=== PATIENT | female | born 1995 | race Caucasian/White ===

== ENCOUNTER 2017-05-08 20:33 | Observation (INO) | payer MEDICAID, OTHER ==
[2017-05-08 20:35] VITALS: BMI 24.2
[2017-05-08] MEDS ORDERED: Albuterol-Ipratrop 3 mg / 0.5 (3 ml) UD IH SCH (20:45)
--- NOTE | 2017-05-08 20:54 | ED PDOC ---
Arrival/HPI <Miguel Lux - Last Filed: 05/08/17 21:44> - History of Present Illness Time/Duration: < week Symptom Onset: Gradual Symptom Course: Worsening Context: Walking <CésarShani brewster - Last Filed: 05/09/17 01:29> - General Chief Complaint: Shortness Of Breath Time Seen by Provider: 05/08/17 20:33 - History of Present Illness Narrative History of Present Illness (Text): 05/08/17 20:48 21 year old female with past medical history of asthma presents for SOB worsening since yesterday. For past 5 days, patient has cough, nasal congestion and SOB. Since yesterday patient has been wheezing and having worsening SOB. Patient had used nebulizer machine and Ventolin at home for SOB with minimal relief. Patient also complains of chills. Denies having any abd pain, N/V/D/ C. Patient states that her daughter had URI symptoms last week (Shani Caldera) Past Medical History - Provider Review Nursing Documentation Reviewed: Yes - Infectious Disease Hx of Infectious Diseases: None - Tetanus Immunization Tetanus Immunization: Unknown - Cardiac Hx Cardiac Disorders: No - Pulmonary Hx Respiratory Disorders: Yes Hx Asthma: Yes - Neurological Hx Neurological Disorder: No - HEENT Hx HEENT Disorder: No - Renal Hx Renal Disorder: No - Endocrine/Metabolic Hx Endocrine Disorders: No - Hematological/Oncological Hx Blood Disorders: No - Integumentary Hx Dermatological Disorder: No - Musculoskeletal/Rheumatological Hx Musculoskeletal Disorders: No - Gastrointestinal Hx Gastrointestinal Disorders: No - Genitourinary/Gynecological Hx Genitourinary Disorders: No - Psychiatric Hx Psychophysiologic Disorder: No Hx Substance Use: No - Anesthesia Hx Anesthesia: No Hx Anesthesia Reactions: No Hx Malignant Hyperthermia: No - Suicidal Assessment Feels Threatened In Home Enviroment: No <Shani Caldera - Last Filed: 05/09/17 01:29> Family/Social History - Physician Review Nursing Documentation Reviewed: Yes Family/Social History: Unknown Family HX Smoking Status: Never Smoked Hx Alcohol Use: No Hx Substance Use: No Hx Substance Use Treatment: No <Shani Caldera - Last Filed: 05/09/17 01:29> Allergies/Home Meds <Miguel Lux - Last Filed: 05/08/17 21:44> <Shani Caldera - Last Filed: 05/09/17 01:29> Allergies/Adverse Reactions: Allergies peanut Allergy (Verified 09/17/16 22:48) ANAPHYLAXIS Review of Systems - Review of Systems Constitutional: Normal. absent: Fatigue, Fevers Eyes: Normal ENT: Rhinorrhea, Sinus Congestion. absent: Normal, Sore Throat Respiratory: SOB, Cough, Wheezing Cardiovascular: absent: Chest Pain, Edema, Calf Pain Gastrointestinal: Normal. absent: Abdominal Pain, Constipation, Diarrhea, Nausea, Vomiting Genitourinary Female: Normal. absent: Dysuria, Frequency Musculoskeletal: Normal. absent: Arthralgias, Back Pain Skin: Normal. absent: Rash, Pruritis, Skin Lesions Neurological: Normal. absent: Headache, Dizziness Endocrine: Normal. absent: Diaphoresis, Polyuria Hemo/Lymphatic: Normal. absent: Adenopathy, Easy Bleeding Psychiatric: Normal. absent: Anxiety, Depression <Shani Caldera - Last Filed: 05/09/17 01:29> Physical Exam Temperature: Afebrile Blood Pressure: Normal Pulse: Tachycardic Respiratory Rate: Normal Appearance: Positive for: Uncomfortable Pain Distress: None Mental Status: Positive for: Alert and Oriented X 3 - Systems Exam Head: Present: Atraumatic, Normocephalic Mouth: Present: Moist Mucous Membranes Respiratory/Chest: Present: Wheezes. No: Respiratory Distress, Accessory Muscle Use, Rales, Retracting, Rhonchi Cardiovascular: Present: Normal S1, S2, Tachycardic. No: Murmurs Abdomen: Present: Normal Bowel Sounds. No: Tenderness, Distention, Peritoneal Signs, Rebound, Guarding Lower Extremity: Present: Normal Inspection, NORMAL PULSES. No: Edema, CALF TENDERNESS Neurological: Present: GCS=15, CN II-XII Intact, Speech Normal Skin: Present: Warm, Dry, Normal Color. No: Rashes Psychiatric: Present: Alert, Oriented x 3, Normal Insight, Normal Concentration <Shani Caldera - Last Filed: 05/09/17 01:29> Vital Signs Temp Pulse Resp BP Pulse Ox 05/09/17 00:40 98.4 F 112 H 18 114/67 97 05/08/17 20:40 16 05/08/17 20:38 98.3 F 127 H 20 112/66 98 Medical Decision Making - Lab Interpretations I have reviewed the lab results: Yes <Miguel Lux - Last Filed: 05/08/17 21:44> - Lab Interpretations I have reviewed the lab results: Yes - EKG Interpretation Interpreted by ED Physician: Yes Type: 12 lead EKG <Shani Caldera - Last Filed: 05/09/17 01:29> ED Course and Treatment: Impression: In agreement with resident note, which includes further HPI details. Patient was seen and evaluated with resident, came up with plan and treatment together. 21 year old female with past medical history of asthma presents for SOB worsening since yesterday. Patient also complains of associated wheezing, cough , and nasal congestion. Plan: --Labs; D-dimer -- Chest X-ray --US Lower Extremities --Duoneb --SOLU-Medrol --Xopenex -- Reassess and disposition (Miguel Lux) 05/08/17 20:57 21 year old female presents with SOB likely due to asthma exacerbation Will check CBC, BMP, D dimer Will get CXR Patient will be given Xopenex and Solumedrol 125 mg IVP stat 05/08/17 23:[address] Lyons who accepts patient for observation to tele under hospitalists service (Shani Caldera) - Lab Interpretations Lab Results: 05/08/17 21:10 05/08/17 21:10 Lab Results 05/08/17 21:10: Beta HCG, Quant 1859.10 H 05/08/17 21:10: D-Dimer, Quantitative 0.61 H 05/08/17 21:10: Sodium 136, Potassium 3.6, Chloride 101, Carbon Dioxide 27, Anion Gap 12, BUN 9, Creatinine 0.5, Est GFR ( Amer) > 60, Est GFR (Non- Af Amer) > 60, Random Glucose 94, Calcium 8.8 05/08/17 21:10: WBC 3.8 L D, RBC 4.41, Hgb 12.5, Hct 36.4, MCV 82.5, MCH 28.3, MCHC 34.3, RDW 13.4, Plt Count 175, MPV 9.4 - RAD Interpretation Radiology Orders: 05/08/17 21:06 DUPLEX LOWER EXTRM VEIN BILAT [US] Stat - EKG Interpretation EKG Interpretation (Text): 05/09/17 00:28 sinus tach HR of 114. Normal axis and normal interval (Shani Caldera) - Medication Orders Current Medication Orders: Albuterol/Ipratropium (Duoneb 3 Mg/0.5 Mg (3 Ml) Ud) 3 ml IH Q2H PRN PRN Reason: Shortness of Breath Albuterol/Ipratropium (Duoneb 3 Mg/0.5 Mg (3 Ml) Ud) 3 ml IH [id number] ABRIL Methylprednisolone (Solu-Medrol) 40 mg IVP Q12 ABRIL Discontinued Medications Albuterol/Ipratropium (Duoneb 3 Mg/0.5 Mg (3 Ml) Ud) 3 ml IH Q15M ABRIL Stop: 05/09/17 00:01 Last Admin: 05/08/17 23:56 Dose: 3 ml Levalbuterol HCl (Xopenex) 1.25 mg IH STAT STA Stop: 05/08/17 20:57 Last Admin: 05/08/17 21:14 Dose: 1.25 mg Methylprednisolone (Solu-Medrol) 125 mg IVP STAT STA Stop: 05/08/17 20:46 Last Admin: 05/08/17 21:14 Dose: 125 mg Disposition/Present on Arrival <Miguel Lux - Last Filed: 05/08/17 21:44> - Present on Arrival Any Indicators Present on Arrival: No History of DVT/PE: No History of Uncontrolled Diabetes: No Urinary Catheter: No History of Decub. Ulcer: No History Surgical Site Infection Following: None - Disposition Have Diagnosis and Disposition been Completed?: Yes Disposition Time: 23:54 Patient Plan: Observation <Shani Caldera - Last Filed: 05/09/17 01:29> - Disposition Diagnosis: Asthma exacerbation Disposition: HOSPITALIZED Patient Problems: Current Active Problems Problem Status Onset Asthma exacerbation Acute Condition: STABLE
[2017-05-08] MEDS ORDERED: Levalbuterol 1.25 MG/3 ML Inhal Soln UD IH STA (20:56)
[2017-05-08 21:33] LABS: HEMOGLOBIN 12.5 gm/dL (12.0-16.0); MEAN CELL VOLUME 82.5 fL (80.0-105.0); MEAN CORPUSCULAR HEMOGLOBIN 28.3 pg (25.0-35.0); MEAN CORPUSCULAR HGB CONC 34.3 g/dl (31.0-37.0); MEAN PLATELET VOLUME 9.4 fl (7.0-11.0); RBC 4.41 10^6/uL (3.5-6.1); RED CELL DISTRIBUTION WIDTH 13.4 % (11.5-14.5); WHITE BLOOD COUNT 3.8 10^3/ul (4.5-11.0)
[2017-05-08 21:34] LABS: BLOOD UREA NITROGEN 9 mg/dL (7-21); CALCIUM 8.8 mg/dL (8.4-10.5); GFR AFRICAN-AMERICAN > 60; GFR NON-AFRICAN AMERICAN > 60
[2017-05-08] MEDS: Albuterol-Ipratrop 3 mg / 0.5 (3 ml) UD IH SCH (23:56)
[2017-05-09] MEDS ORDERED: Albuterol-Ipratrop 3 mg / 0.5 (3 ml) UD IH PRN (01:08)
[2017-05-09] MEDS: Albuterol-Ipratrop 3 mg / 0.5 (3 ml) UD IH SCH ×5 (01:57→16:03)
--- NOTE | 2017-05-09 03:15 | CP.PCM.HP ---
<JOSEMANUEL EISENBERG - Last Filed: 05/09/17 03:23> History of Present Illness - History of Present Illness History of Present Illness: CC: Asthma Exacerbation HPI: Ms. Perez is a 21 year old female with a past medical history significant for asthma who presented to the ED for an asthma exacerbation. Patient reports that since Tuesday, she has had symptoms of low grade fever, productive cough of clear phlegm, and nasal congestion and that her 1 year old daughter had similar complaints 10 days ago. Since she has had shortness of breath and wheezing. She reports that she has had to take her albuterol and duoneb treatments multiple times a day since with minimal relief. She reports that she was on daily advair until a few months ago but her insurance changed and it is no longer covered. Patient reports that her symptoms are well controlled and she only uses her albuterol inhaler every couple of weeks. She reports no night time symptoms of her asthma. She denies any new pets, new lotions, new laundry detergent or any other possible asthma triggers. Patient was incidentally found to have a positive test in the ED and urged medical staff for discretion of this in front of her visitors, as this information is new to her. Currently, patient reports that her SOB and wheezing have improved only somewhat but she is "breathing easier" than she was when she was admitted. She denies headache, dizziness, changes in vision, chest pain, palpitations, pleurisy, hemoptysis, abdominal pain, N/V, diarrhea, numbness/tingling/weakness of any extremity, edema, rashes, neck pain or back pain. PMH: Asthma PSH: None Family History: Father has asthma, Mother and her side of the family "all" have DM2 Social History: Denies tobacco, alcohol or any illicit drug use Allergies: Peanut Home Meds: Ventolin and Nebulized Albuterol PRN Present on Admission - Present on Admission Any Indicators Present on Admission: No Review of Systems - Review of Systems Review of Systems: Please refer to HPI Past Patient History - Infectious Disease Hx of Infectious Diseases: None - Tetanus Immunizations Tetanus Immunization: Unknown - Past Social History Smoking Status: Never Smoked - CARDIAC Hx Cardiac Disorders: No - PULMONARY Hx Respiratory Disorders: Yes Hx Asthma: Yes - NEUROLOGICAL Hx Neurological Disorder: No - HEENT Hx HEENT Problems: No - RENAL Hx Chronic Kidney Disease: No - ENDOCRINE/METABOLIC Hx Endocrine Disorders: No - HEMATOLOGICAL/ONCOLOGICAL Hx Blood Disorders: No - INTEGUMENTARY Hx Dermatological Problems: No - MUSCULOSKELETAL/RHEUMATOLOGICAL Hx Musculoskeletal Disorders: No - GASTROINTESTINAL Hx Gastrointestinal Disorders: No - GENITOURINARY/GYNECOLOGICAL Hx Genitourinary Disorders: No - PSYCHIATRIC Hx Psychophysiologic Disorder: No Hx Substance Use: No - SURGICAL HISTORY Hx Surgeries: No - ANESTHESIA Hx Anesthesia: No Hx Anesthesia Reactions: No Hx Malignant Hyperthermia: No Meds Allergies/Adverse Reactions: Allergies Allergy/AdvReac Type Severity Reaction Status Date / Time peanut Allergy ANAPHYLAXIS Verified 09/17/16 22:48 Physical Exam - Constitutional Appears: No Acute Distress - Head Exam Head Exam: ATRAUMATIC, NORMAL INSPECTION, NORMOCEPHALIC - Eye Exam Eye Exam: EOMI, Normal appearance, PERRL. absent: Conjunctival injection, Periorbital swelling - ENT Exam ENT Exam: Mucous Membranes Moist, Normal Exam - Neck Exam Neck exam: Positive for: Full Rom, Normal Inspection. Negative for: Lymphadenopathy, Tenderness - Respiratory Exam Respiratory Exam: Rhonchi, Wheezes. absent: Accessory Muscle Use, Decreased Breath Sounds, Respiratory Distress Additional comments: Diffuse rhonci and expiratory wheezing bilaterally - Cardiovascular Exam Cardiovascular Exam: REGULAR RHYTHM, RRR, +S1, +S2. absent: Tachycardia, Systolic Murmur - GI/Abdominal Exam GI & Abdominal Exam: Normal Bowel Sounds, Soft. absent: Distended, Firm, Tenderness - Exam Exam: absent: Bladder Distension - Extremities Exam Extremities exam: Positive for: normal capillary refill, normal inspection, pedal pulses present. Negative for: calf tenderness, pedal edema - Back Exam Back exam: absent: CVA tenderness (L), CVA tenderness (R) - Neurological Exam Neurological exam: Alert, Oriented x3 - Psychiatric Exam Psychiatric exam: Normal Affect, Normal Mood - Skin Skin Exam: Dry, Intact, Normal Color, Warm Results - Vital Signs Recent Vital Signs: Last Vital Signs Temp 98.4 F 05/09/17 00:40 Pulse 112 H 05/09/17 00:40 Resp 18 05/09/17 00:40 BP 114/67 05/09/17 00:40 Pulse Ox 97 05/09/17 00:40 - Labs Result Diagrams: 05/08/17 21:10 05/08/17 21:10 Assessment & Plan - Assessment and Plan (Free Text) Assessment: 21 year old female with a past medical history significant for asthma who presented to the ED for an asthma exacerbation Plan: 1. Asthma Exacerbation -Duonebs 3mg Q2H PRN and Q4H scheduled -IV Solu-medrol 40mg BID -O2 via NC at 3L -telemetry monitoring 2. Positive Test -daily MV -careful discretion with patients visitors per request 3. DVT prophylaxis -scd's Patient seen and case discussed with attending, Dr. Lyons. - Date & Time Date: 05/09/17 Time: 03:15 Decision To Admit - Pt Status Changed To: Hospital Disposition Of: Observation - . Bed Request Type: Telemetry <Farhan Lyons MD - Last Filed: 05/09/17 09:14> Results - Vital Signs Recent Vital Signs: Last Vital Signs Temp 97.8 F 05/09/17 04:33 Pulse 107 H 05/09/17 06:00 Resp 18 05/09/17 04:33 BP 112/67 05/09/17 04:33 Pulse Ox 98 05/09/17 04:33 - Labs Result Diagrams: 05/09/17 05:40 05/09/17 05:40 Labs: Laboratory Results - last 24 hr 05/09/17 05/09/17 05:40 05:40 WBC 1.6 L* D RBC 4.56 Hgb 12.8 Hct 37.5 MCV 82.2 MCH 28.1 MCHC 34.1 RDW 13.6 Plt Count 206 MPV 9.2 Neutrophils % (Manual) 75 H Band Neutrophils % 9 H Lymphocytes % (Manual) 13 L Monocytes % (Manual) 2 Basophils % (Manual) 1 Platelet Evaluation Normal Sodium 139 Potassium 4.3 Chloride 103 Carbon Dioxide 24 Anion Gap 16 BUN 13 Creatinine 0.5 Est GFR ( Amer) > 60 Est GFR (Non-Af Amer) > 60 Random Glucose 176 H Calcium 9.3 Total Bilirubin 0.4 AST 25 ALT 19 Alkaline Phosphatase 72 Total Protein 7.5 Albumin 4.1 Globulin 3.5 Albumin/Globulin Ratio 1.2 Attending/Attestation - Attestation I have personally seen and examined this patient.: Yes I have fully participated in the care of the patient.: Yes I have reviewed all pertinent clinical information: Yes Notes (Text): -I agree with the above H&P completed by the resident physician with the following additions and/or changes: The patient is a 21 year old woman with a history of lifelong asthma who is being admitted for acute asthma exacerbation. Of note, she was found to have a positive urine screen in the ED, but would like to keep this information private. She will be treated with IV Solumedrol, Duo-nebs and O2 via. She denies fevers or chills. No chest x-ray was done given that patient is and since it is not essential in her treatment at this time.
[2017-05-09 03:30] VITALS: O2SAT 98
[2017-05-09 06:18] LABS: HEMOGLOBIN 12.8 gm/dL (12.0-16.0); MEAN CELL VOLUME 82.2 fL (80.0-105.0); MEAN CORPUSCULAR HEMOGLOBIN 28.1 pg (25.0-35.0); MEAN CORPUSCULAR HGB CONC 34.1 g/dl (31.0-37.0); MEAN PLATELET VOLUME 9.2 fl (7.0-11.0); PLATELET COUNT 206 10^3/uL (120.0-450.0); RBC 4.56 10^6/uL (3.5-6.1); RED CELL DISTRIBUTION WIDTH 13.6 % (11.5-14.5)
[2017-05-09 06:25] LABS: WHITE BLOOD COUNT 1.6 10^3/ul (4.5-11.0)
[2017-05-09 06:38] LABS: ALB/GLOB RATIO 1.2 (1.1-1.8); ALBUMIN 4.1 g/dL (3.0-4.8); ALT/SGPT 19 U/L (7-56); AST/SGOT 25 U/L (15-39); BLOOD UREA NITROGEN 13 mg/dL (7-21); CALCIUM 9.3 mg/dL (8.4-10.5); GFR AFRICAN-AMERICAN > 60; GFR NON-AFRICAN AMERICAN > 60
[2017-05-09 06:58] LABS: BAND 9 % (0-2); BASOPHIL 1 % (0.0-1.0); LYMPHOCYTE 13 % (22.0-35.0); MONOCYTE 2 % (1.0-6.0); NEUTROPHIL 75 % (50.0-70.0)
[2017-05-09 06:59] LABS: PLATELET ESTIMATE NORMAL (NORMAL)
[2017-05-09] MEDS ORDERED: Multivitamin With Minerals Tab PO SCH (08:00)
[2017-05-09] MEDS ORDERED: MethylPREDNISolone 40 mg Vial IVP SCH ×2 (10:00→14:00)
[2017-05-09 12:39] VITALS: BP 107/71; RESP 21; TEMP 98
--- NOTE | 2017-05-09 16:41 | CP.PCM.DIS ---
<Courtney Burnett - Last Filed: 05/09/17 16:45> Provider - Provider Date of Admission: 05/09/17 00:19 Attending physician: Lynn Bishop MD Primary care physician: 21 F admitted for asthma exacerbation. Patient also tested positive for . Time Spent in preparation of Discharge (in minutes): 20 Hospital Course - Lab Results Lab Results: Most Recent Lab Values WBC 1.6 10^3/ul (4.5-11.0) L* D 05/09/17 05:40 RBC 4.56 10^6/uL (3.5-6.1) 05/09/17 05:40 Hgb 12.8 gm/dL (12.0-16.0) 05/09/17 05:40 Hct 37.5 % (36.0-48.0) 05/09/17 05:40 MCV 82.2 fL (80.0-105.0) 05/09/17 05:40 MCH 28.1 pg (25.0-35.0) 05/09/17 05:40 MCHC 34.1 g/dl (31.0-37.0) 05/09/17 05:40 RDW 13.6 % (11.5-14.5) 05/09/17 05:40 Plt Count 206 10^3/uL (120.0-450.0) 05/09/17 05:40 MPV 9.2 fl (7.0-11.0) 05/09/17 05:40 Neutrophils % (Manual) 75 % (50.0-70.0) H 05/09/17 05:40 Band Neutrophils % 9 % (0-2) H 05/09/17 05:40 Lymphocytes % (Manual) 13 % (22.0-35.0) L 05/09/17 05:40 Monocytes % (Manual) 2 % (1.0-6.0) 05/09/17 05:40 Basophils % (Manual) 1 % (0.0-1.0) 05/09/17 05:40 Platelet Evaluation Normal (NORMAL) 05/09/17 05:40 D-Dimer, Quantitative 0.61 mg/L FEU (0-0.50) H 05/08/17 21:10 Sodium 139 mmol/L (132-148) 05/09/17 05:40 Potassium 4.3 mmol/L (3.6-5.0) 05/09/17 05:40 Chloride 103 mmol/L (98-107) 05/09/17 05:40 Carbon Dioxide 24 mmol/L (21-33) 05/09/17 05:40 Anion Gap 16 (10-20) 05/09/17 05:40 BUN 13 mg/dL (7-21) 05/09/17 05:40 Creatinine 0.5 mg/dL (0.5-1.4) 05/09/17 05:40 Est GFR ( Amer) > 60 05/09/17 05:40 Est GFR (Non-Af Amer) > 60 05/09/17 05:40 Random Glucose 176 mg/dL (70-110) H 05/09/17 05:40 Calcium 9.3 mg/dL (8.4-10.5) 05/09/17 05:40 Total Bilirubin 0.4 mg/dL (0.2-1.3) 05/09/17 05:40 AST 25 U/L (15-39) 05/09/17 05:40 ALT 19 U/L (7-56) 05/09/17 05:40 Alkaline Phosphatase 72 U/L (38-133) 05/09/17 05:40 Total Protein 7.5 g/dL (5.8-8.3) 05/09/17 05:40 Albumin 4.1 g/dL (3.0-4.8) 05/09/17 05:40 Globulin 3.5 gm/dL 05/09/17 05:40 Albumin/Globulin Ratio 1.2 (1.1-1.8) 05/09/17 05:40 Beta HCG, Quant 1859.10 mIU/mL (0-6.15) H 05/08/17 21:10 - Hospital Course Hospital Course: 21 year old female with PMH significant for asthma who presented to the ED for an asthma exacerbation. Since Tuesday patient had subjective low grade fever, productive cough of clear phlegm, and nasal congestion and that her 1 year old daughter had similar complaints 10 days ago. Since she has had shortness of breath and wheezing. She reports that she has had to take her albuterol and duoneb treatments multiple times a day since with minimal relief. She reports that she was on daily advair, but her insurance changed a few months ago and patient no longer uses Advair. Patient reports that her symptoms are well controlled and she only uses her albuterol inhaler every couple of weeks. She reports no night time symptoms of her asthma. Imaging and labs ddimer 0.61 beta HCG 1859.10 Duplex lower extremities for leg pain EKG sinus tachycardia @114bpm HIV 1/2/ Ag/ab testing medications during stay duoneb 3cc Q2H PRN methylprednisolone 40mg IVP Q8 administered saline for nasal flush PT S&E at bedside 8 morning and stated she's doing better, breathing better and still has a cough. Patient states she is okay with going home and feels much better than on admission. - Date & Time of H&P Date of H&P: 05/09/17 Time of H&P: 16:49 Discharge Exam - Head Exam Head Exam: ATRAUMATIC, NORMAL INSPECTION, NORMOCEPHALIC - Eye Exam Eye Exam: EOMI, Normal appearance Pupil Exam: NORMAL ACCOMODATION - ENT Exam ENT Exam: Mucous Membranes Moist - Neck Exam Neck exam: Full Rom, Normal Inspection - Respiratory Exam Respiratory Exam: Wheezes, NORMAL BREATHING PATTERN. absent: Accessory Muscle Use, Rales, Respiratory Distress, Stridor Additional comments: wheezes auscultated bilaterally in upper lobes - Cardiovascular Exam Cardiovascular Exam: Tachycardia - GI/Abdominal Exam GI & Abdominal Exam: Soft, Unremarkable. absent: Tenderness - Extremities Exam Extremities exam: full ROM - Neurological Exam Neurological exam: Alert, Oriented x3, Reflexes Normal - Psychiatric Exam Psychiatric exam: Flat Affect, Normal Mood - Skin Skin Exam: Dry, Intact, Normal Color, Warm Discharge Plan - Discharge Medications Prescriptions: Albuterol 0.5% [Albuterol 0.5% Inhal Amber (2.5 mg/0.5 ml) UD] 0.25 ml IH Q6 #50 neb Albuterol HFA [Ventolin HFA 90 mcg/actuation (8 g)] 1 puff IH Q6 #1 inhaler Methylprednisolone [Medrol Dose Pack (21 tabs)] 4 mg PO DAILY #21 mg - Follow Up Plan Condition: IMPROVED Disposition: HOME/ ROUTINE Patient education suggested?: Yes Instructions: Asthma (DC), Asthma (GEN) Additional Instructions: 1) take prescriptions as directed 2) Return to ED if short of breath, worsening cough symptoms, and asthmatic symptoms increase, tachycardic for extended period of time after albuterol administration 3) f/u with primary care doctor in less than a week 4) f/u with OBGYN for pre- care and monitoring of 5) medrol dose pack 4mg POQD <Lynn Bishop - Last Filed: 05/09/17 17:01> Provider - Provider Date of Admission: 05/09/17 00:19 Attending physician: Lynn Bishop MD Hospital Course - Lab Results Lab Results: Most Recent Lab Values WBC 1.6 10^3/ul (4.5-11.0) L* D 05/09/17 05:40 RBC 4.56 10^6/uL (3.5-6.1) 05/09/17 05:40 Hgb 12.8 gm/dL (12.0-16.0) 05/09/17 05:40 Hct 37.5 % (36.0-48.0) 05/09/17 05:40 MCV 82.2 fL (80.0-105.0) 05/09/17 05:40 MCH 28.1 pg (25.0-35.0) 05/09/17 05:40 MCHC 34.1 g/dl (31.0-37.0) 05/09/17 05:40 RDW 13.6 % (11.5-14.5) 05/09/17 05:40 Plt Count 206 10^3/uL (120.0-450.0) 05/09/17 05:40 MPV 9.2 fl (7.0-11.0) 05/09/17 05:40 Neutrophils % (Manual) 75 % (50.0-70.0) H 05/09/17 05:40 Band Neutrophils % 9 % (0-2) H 05/09/17 05:40 Lymphocytes % (Manual) 13 % (22.0-35.0) L 05/09/17 05:40 Monocytes % (Manual) 2 % (1.0-6.0) 05/09/17 05:40 Basophils % (Manual) 1 % (0.0-1.0) 05/09/17 05:40 Platelet Evaluation Normal (NORMAL) 05/09/17 05:40 D-Dimer, Quantitative 0.61 mg/L FEU (0-0.50) H 05/08/17 21:10 Sodium 139 mmol/L (132-148) 05/09/17 05:40 Potassium 4.3 mmol/L (3.6-5.0) 05/09/17 05:40 Chloride 103 mmol/L (98-107) 05/09/17 05:40 Carbon Dioxide 24 mmol/L (21-33) 05/09/17 05:40 Anion Gap 16 (10-20) 05/09/17 05:40 BUN 13 mg/dL (7-21) 05/09/17 05:40 Creatinine 0.5 mg/dL (0.5-1.4) 05/09/17 05:40 Est GFR ( Amer) > 60 05/09/17 05:40 Est GFR (Non-Af Amer) > 60 05/09/17 05:40 Random Glucose 176 mg/dL (70-110) H 05/09/17 05:40 Calcium 9.3 mg/dL (8.4-10.5) 05/09/17 05:40 Total Bilirubin 0.4 mg/dL (0.2-1.3) 05/09/17 05:40 AST 25 U/L (15-39) 05/09/17 05:40 ALT 19 U/L (7-56) 05/09/17 05:40 Alkaline Phosphatase 72 U/L (38-133) 05/09/17 05:40 Total Protein 7.5 g/dL (5.8-8.3) 05/09/17 05:40 Albumin 4.1 g/dL (3.0-4.8) 05/09/17 05:40 Globulin 3.5 gm/dL 05/09/17 05:40 Albumin/Globulin Ratio 1.2 (1.1-1.8) 05/09/17 05:40 Beta HCG, Quant 1859.10 mIU/mL (0-6.15) H 05/08/17 21:10 Attending/Attestation - Attestation I have personally seen and examined this patient.: Yes I have fully participated in the care of the patient.: Yes I have reviewed all pertinent clinical information, including history, physical exam and plan: Yes Notes (Text): 05/09/17 16:59 attending note; Patient seen and examined with resident. Patient is a 21-year-old female admitted with asthma exacerbation. Currently treated with DuoNeb and IV Solu-Medrol. Improved significantly. ; patient just found out that she is . Advised to follow-up with [facility] at [facility]. Patient will be discharged home with inhaler, nebulizer solution And streoids. Educated about her early and advised to avoid medications unless prescribed by a physician. Diagnosis; Asthma exacerbation
--- NOTE | 2017-05-09 17:09 | US ---
HISTORY: Leg pain and swelling. Evaluate for DVT PHYSICIAN(S): Clifton Singh MD. TECHNIQUE: Duplex sonography and color-flow Doppler with graded compression were used to evaluate the deep venous systems of both lower extremities. FINDINGS: The visualized deep venous systems of both lower extremities are sonographically normal and compressible. Normal wave forms and augmentation are seen. There is no sonographic evidence for deep venous thrombosis in the visualized segments of both lower extremities. IMPRESSION: No sonographic evidence for deep venous thrombosis in the visualized segments of both lower extremities.
[2017-05-09 17:11] VITALS: PULSE 119
--- NOTE | 2017-05-10 09:45 | CARD ---
APPROVED REPORT EKG Measurement Heart [id number] <Conclusion> Sinus tachycardia Prolonged QTc
== END 2017-05-09 18:26 | disposition home or self-care (01) ==
LOC: ED 20:33 → ERH 05-09 00:19 → 2RNO 05-09 04:24
PROVIDERS: ADMIT Internal Medicine; ATTEND Internal Medicine
DX: J45.901 Unspecified asthma with (acute) exacerbation (principal); Z32.01 Encounter for pregnancy test, result positive; Z3A.00 Weeks of gestation of pregnancy not specified; Z82.5 Family history of asthma and other chronic lower respiratory diseases; Z83.3 Family history of diabetes mellitus
CPT/HCPCS: 36415; 80048; 80053; 84702; 85025; 85027; 85378; 93005; 93970; 94640; 96374; 99285; G0378; J2920; J2930

== ENCOUNTER 2017-10-06 01:14 | Emergency (ER) | payer OTHER ==
[2017-10-06 01:15] VITALS: BMI 24.2
--- NOTE | 2017-10-06 01:36 | ED PDOC ---
Arrival/HPI - General Time Seen by Provider: 10/06/17 01:31 Historian: Patient - History of Present Illness Narrative History of Present Illness (Text): 10/06/17 01:32 A 22 year old female whose past medical history includes , ovarian cysts, and asthma, presents to the emergency department complaining of vaginal bleeding. The patient states that her last menstrual period occurred on 09/22 and that it lasted the usual length and amount. 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 She notes that she has also had cramping and lower back pain. The patient denies fevers, chills, headache, dizziness, chest pain, shortness of breath, dyspnea on exertion, cough , nausea, vomiting, diarrhea, neck pain, urinary/bowel changes, or any other complaint. PMD: Dr. Katlin Corbett Time/Duration: Other (Earlier today) Symptom Onset: Sudden Symptom Course: Unchanged Activities at Onset: Rest, Light Context: Home, Work Past Medical History - Provider Review Nursing Documentation Reviewed: Yes - Infectious Disease Hx of Infectious Diseases: None - Tetanus Immunization Tetanus Immunization: Unknown - Cardiac Hx Cardiac Disorders: No - Pulmonary Hx Respiratory Disorders: Yes Hx Asthma: Yes Hx Bronchitis: Yes - Neurological Hx Neurological Disorder: No - HEENT Hx HEENT Disorder: No - Renal Hx Renal Disorder: No - Endocrine/Metabolic Hx Endocrine Disorders: No - Hematological/Oncological Hx Blood Disorders: No Hx Anemia: Yes (while , transfusion after delivery) - Integumentary Hx Dermatological Disorder: Yes Hx Eczema: Yes - Musculoskeletal/Rheumatological Hx Musculoskeletal Disorders: No Hx Falls: No - Gastrointestinal Hx Gastrointestinal Disorders: No - Genitourinary/Gynecological Hx Genitourinary Disorders: No - Psychiatric Hx Psychophysiologic Disorder: Yes Hx Anxiety: Yes Hx Substance Use: No - Anesthesia Hx Anesthesia: No Hx Anesthesia Reactions: No Hx Malignant Hyperthermia: No - Suicidal Assessment Feels Threatened In Home Enviroment: No Family/Social History - Physician Review Nursing Documentation Reviewed: Yes Family/Social History: No Known Family HX Smoking Status: Never Smoked Hx Alcohol Use: No Hx Substance Use: No Hx Substance Use Treatment: No Allergies/Home Meds Allergies/Adverse Reactions: Allergies peanut Allergy (Verified 10/06/17 01:46) ANAPHYLAXIS Review of Systems - Physician Review All systems were reviewed & negative as marked: Yes - Review of Systems Constitutional: absent: Fevers Respiratory: absent: SOB, Cough Cardiovascular: absent: Chest Pain, ONEAL Genitourinary Female: Vaginal Bleeding Musculoskeletal: absent: Neck Pain Neurological: absent: Headache, Dizziness Physical Exam Vital Signs Temp Pulse Resp BP Pulse Ox 10/06/17 01:47 98.4 F 76 17 112/63 99 Appearance: Positive for: Well-Appearing, Non-Toxic, Comfortable Pain Distress: None Mental Status: Positive for: Alert and Oriented X 3 - Systems Exam Head: Present: Atraumatic, Normocephalic Pupils: Present: PERRL Extroacular Muscles: Present: EOMI Conjunctiva: Present: Normal Mouth: Present: Moist Mucous Membranes Neck: Present: Normal Range of Motion Respiratory/Chest: Present: Clear to Auscultation, Good Air Exchange. No: Respiratory Distress, Accessory Muscle Use Cardiovascular: Present: Regular Rate and Rhythm, Normal S1, S2. No: Murmurs Abdomen: Present: Tenderness (Diffuse lower abdominal discomfort.). No: Rebound , Guarding Back: Present: Normal Inspection Upper Extremity: Present: Normal Inspection. No: Cyanosis, Edema Lower Extremity: Present: Normal Inspection. No: Edema Neurological: Present: GCS=15, CN II-XII Intact, Speech Normal Skin: Present: Warm, Dry, Normal Color. No: Rashes Psychiatric: Present: Alert, Oriented x 3, Normal Insight, Normal Concentration Medical Decision Making ED Course and Treatment: 10/06/17 01:38 Impression: A 22 year old female presents to the emergency department complaining of vaginal bleeding, cramping, and lower back pain. Differential Diagnosis included but are not limited to: Dysfunctional uterine bleeding vs. vs. ectopic . Plan: -- Labs -- Urinalysis -- Reassess and disposition Prior Visits: Notes and results from previous visits were reviewed. Patient was last seen in the emergency department on 05/18/2017. The patient was seen in the emergency department for shortness of breath. The patient was hospitalized. Progress Notes: 10/06/17 02:16: Reviewed labs. Patient is not anemic, normal H & H, urine is clean except for blood, and urine test is negative. Will perform pelvic exam. 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 On pelvic exam, patient has scant dark vaginal blood. Cervix is retroverted and painful to palpation. No discharge was appreciated. The cervix was swabbed to test for GC. Will send urine for chlamydia, GC, PID. 10/06/17 02:46: Discussed with patient the possibility that she could have an STI due to the pain she experienced when I moved her cervix. We will treat presumptively for PID. The patient knows, however, that the proof will only be if cultures are positive. - Lab Interpretations Lab Results: 10/06/17 01:51 10/06/17 01:51 Lab Results 10/06/17 01:51: Sodium 139, Potassium 3.9, Chloride 101, Carbon Dioxide 28, Anion Gap 14, BUN 19, Creatinine 0.7, Est GFR ( Amer) > 60, Est GFR (Non- Af Amer) > 60, Random Glucose 90, Calcium 9.1, Total Bilirubin 0.2, AST 20, ALT 28, Alkaline Phosphatase 79, Total Protein 7.2, Albumin 4.0, Globulin 3.2, Albumin/Globulin Ratio 1.2 10/06/17 01:51: Urine Color Yellow, Urine Appearance Sl cloudy, Urine pH 7.0, Ur Specific [place] 1.020, Urine Protein Trace H, Urine Glucose (UA) Negative, Urine Ketones Negative, Urine Blood Large H, Urine Nitrate Negative, Urine Bilirubin Negative, Urine Urobilinogen 0.2, Ur Leukocyte Esterase Negative, Urine RBC 25 - 30, Urine WBC 0 - 2, Ur Epithelial Cells 0 - 2, Urine HCG, Qual Negative 10/06/17 01:51: WBC 8.1 D, RBC 4.57, Hgb 12.7, Hct 38.9, MCV 85.1, MCH 27.8, MCHC 32.6, RDW 13.9, Plt Count 219, MPV 9.5, Gran % 59.2, Lymph % (Auto) 26.7, [place] % (Auto) 5.2, Eos % (Auto) 8.5 H, Baso % (Auto) 0.4, Gran # 4.81, Lymph # 2.2, [place] # 0.4, Eos # 0.7, Baso # 0.03 I have reviewed the lab results: Yes - Medication Orders Current Medication Orders: Discontinued Medications Azithromycin (Zithromax) 1,000 mg PO STAT STA PRN Reason: Protocol Stop: 10/06/17 02:38 Ceftriaxone Sodium (Rocephin) 125 mg IM STAT STA PRN Reason: Protocol Stop: 10/06/17 02:37 - Scribe Statement The provider has reviewed the documentation as recorded by the Tiffanie Wynn Provider Ginaibe Attestation: All medical record entries made by the Scribe were at my direction and personally dictated by me. I have reviewed the chart and agree that the record accurately reflects my personal performance of the history, physical exam, medical decision making, and the department course for this patient. I have also personally directed, reviewed, and agree with the discharge instructions and disposition. Disposition/Present on Arrival - Present on Arrival Any Indicators Present on Arrival: No History of DVT/PE: No History of Uncontrolled Diabetes: No Urinary Catheter: No History Surgical Site Infection Following: None - Disposition Have Diagnosis and Disposition been Completed?: Yes Diagnosis: PID (acute pelvic inflammatory disease), Dysfunctional uterine bleeding Disposition: HOME/ ROUTINE Disposition Time: 02:40 Patient Plan: Discharge Patient Problems: Current Active Problems Problem Status Onset PID (acute pelvic inflammatory disease) Acute Dysfunctional uterine bleeding Acute Condition: GOOD Discharge Instructions (ExitCare): Pelvic Inflammatory Disease (ED), Dysfunctional Uterine Bleeding (ED) Print Language: DOMINICAN Prescriptions: Acetaminophen/Hydrocodone Bi [Vicodin 300 mg-5 mg] 1 tab PO QID PRN #12 tab PRN Reason: Pain, Mild (1-3) Referrals: [facility] [Outside] - Follow up with primary
[2017-10-06 01:48] VITALS: RESP 17
[2017-10-06 02:01] LABS: BASO # 0.03 K/mm3 (0.0-2.0); BASO % 0.4 % (0.0-3.0); EOS # 0.7 (0.0-0.7); EOS % 8.5 % (1.5-5.0); GRAN # 4.81 (1.4-6.5); GRAN % 59.2 % (50.0-68.0); HEMOGLOBIN 12.7 g/dL (12.0-16.0); LYMPH # 2.2 (1.2-3.4); LYMPH % 26.7 % (22.0-35.0); MEAN CELL VOLUME 85.1 fl (80.0-105.0); MEAN CORPUSCULAR HEMOGLOBIN 27.8 pg (25.0-35.0); MEAN CORPUSCULAR HGB CONC 32.6 g/dl (31.0-37.0); MEAN PLATELET VOLUME 9.5 fl (7.0-11.0); MONO # 0.4 (0.1-0.6); MONO % 5.2 % (1.0-6.0); RBC 4.57 10^6/uL (3.5-6.1); RED CELL DISTRIBUTION WIDTH 13.9 % (11.5-14.5); URINE BILIRUBIN NEGATIVE (NEGATIVE); URINE BLOOD LARGE (NEGATIVE); URINE GLUCOSE (UA) NEGATIVE (NEGATIVE); URINE LEUKOCYTE ESTERASE NEGATIVE Leu/uL (NEGATIVE); URINE NITRATE NEGATIVE (NEGATIVE); URINE PROTEIN TRACE mg/dL (<30 mg/dL); URINE UROBILINOGEN 0.2 E.U./dL (<1 E.U./dL); WHITE BLOOD COUNT 8.1 10^3/ul (4.5-11.0)
[2017-10-06 02:05] LABS: URINE APPEARANCE SL CLOUDY (CLEAR); URINE COLOR YELLOW (YELLOW)
[2017-10-06 02:11] LABS: HCG,QUALITATIVE URINE NEGATIVE (NEGATIVE)
[2017-10-06 02:13] LABS: URINE EPITHELIAL CELLS 0 - 2 /hpf (0-5); URINE RBC 25 - 30 /hpf (0-2); URINE WBC 0 - 2 /hpf (0-6)
[2017-10-06 02:21] LABS: ALB/GLOB RATIO 1.2 (1.1-1.8); ALT/SGPT 28 U/L (7-56); AST/SGOT 20 U/L (14-36); BLOOD UREA NITROGEN 19 mg/dL (7-21); CALCIUM 9.1 mg/dL (8.4-10.5); GFR AFRICAN-AMERICAN > 60; GFR NON-AFRICAN AMERICAN > 60
[2017-10-06] MEDS ORDERED: cefTRIAXone (Rocephin) 250 mg Inj IM STA (02:36)
[2017-10-06] MEDS ORDERED: Lidocaine 1% Inj (20ml) ONE (02:57)
[2017-10-06 03:20] VITALS: BP 115/69; PULSE 72; TEMP 98; O2SAT 98
== END 2017-10-06 03:20 | disposition home or self-care (01) ==
LOC: ED 01:14
DX: N93.8 Other specified abnormal uterine and vaginal bleeding (principal); N73.9 Female pelvic inflammatory disease, unspecified
CPT/HCPCS: 80053; 81001; 84703; 85025; 87491; 87591; 96372; 99284; J0696

== ENCOUNTER 2018-02-12 22:02 | Emergency (ER) | payer MEDICAID, OTHER ==
[2018-02-12 22:20] VITALS: BMI 26.2
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
[2018-02-12 22:46] LABS: URINE BILIRUBIN NEGATIVE (NEGATIVE); URINE BLOOD NEGATIVE (NEGATIVE); URINE GLUCOSE (UA) NEGATIVE (NEGATIVE); URINE LEUKOCYTE ESTERASE SMALL Leu/uL (NEGATIVE); URINE PROTEIN NEGATIVE mg/dL (<30 mg/dL); URINE UROBILINOGEN 0.2 E.U./dL (<1 E.U./dL)
[2018-02-12 22:47] LABS: URINE APPEARANCE CLEAR (CLEAR); URINE COLOR YELLOW (YELLOW)
[2018-02-12 22:53] LABS: URINE RBC 0 - 2 /hpf (0-2); URINE WBC 0 - 2 /hpf (0-6)
[2018-02-12 23:07] VITALS: RESP 16
[2018-02-13 00:17] VITALS: BP 116/78; PULSE 86; TEMP 97.5; O2SAT 99
--- NOTE | 2018-02-13 09:58 | RAD ---
PROCEDURE: Radiographs of the Lumbar Spine. HISTORY: back pain COMPARISON: No prior. FINDINGS: BONES: Normal alignment. No listhesis. No fracture. DISC SPACES: Unremarkable. OTHER FINDINGS: None. IMPRESSION: Unremarkable radiographs of the lumbar spine.
== END 2018-02-13 00:08 | disposition home or self-care (01) ==
LOC: ED 22:02
DX: N39.0 Urinary tract infection, site not specified (principal); M54.40 Lumbago with sciatica, unspecified side
CPT/HCPCS: 72110; 81001; 87086; 96372; 99283; J1885